=== PATIENT | male | born 1990 | race Caucasian/White ===

== ENCOUNTER 2023-06-20 04:05 | Day surgery (SDC) | payer OTHER ==
[2023-06-19 14:47] VITALS: BMI 29.2
[2023-06-20] MEDS ORDERED: LIDOCAINE HCL/PF 2% SDV 5ML VIAL ONE (10:16)
[2023-06-20] MEDS ORDERED: ONDANSETRON 4 MG/2 ML VIAL ONE (10:16)
[2023-06-20] MEDS ORDERED: SODIUM CHLORIDE 0.9% P/F 10 ML VIAL IJ ONE (10:16)
[2023-06-20] MEDS ORDERED: DEXAMETHASONE SOD PHOSPHATE 4 MG/1 ML VIAL ONE (10:16)
[2023-06-20] MEDS ORDERED: ROCURONIUM BROMIDE 50 MG/5 ML SYRINGE ONE (10:19)
[2023-06-20] MEDS ORDERED: HYDROmorphone HCl 2 MG/ML VIAL ONE (10:20)
[2023-06-20] MEDS ORDERED: PROPOFOL 20 ML ONE (10:21)
[2023-06-20] MEDS ORDERED: MIDAZOLAM HCL 2 MG/2 ML SINGLE DOSE VIAL ONE (10:23)
[2023-06-20] MEDS ORDERED: COCAINE HCL 4% TOPICAL SOLUTION 4 ML BOTTLE TP ONE ×2 (12:39→13:28)
[2023-06-20] MEDS ORDERED: oxyCODONE HCL 5 MG TABLET PO PRN ×2 (12:56→15:23)
[2023-06-20] MEDS ORDERED: LACTATED RINGERS SOLUTION 1,000 ML IV SCH ×2 (13:00→15:30)
[2023-06-20] MEDS ORDERED: ceFAZolin SODIUM 1 GM VIAL IVPB ONE (13:15)
[2023-06-20] MEDS ORDERED: ACETAMINOPHEN INJECTION 100 ML IVPB ONE (13:26)
[2023-06-20] MEDS ORDERED: LIDOCAINE 1%/EPI 1:100000 (20 ML MULTI DOSE VIAL) IJ ONE (13:28)
[2023-06-20] MEDS ORDERED: SUGAMMADEX SODIUM 200 MG/2 ML VIAL ONE (14:50)
[2023-06-20 17:12] VITALS: RESP 16
[2023-06-20 18:32] VITALS: BP 125/70; PULSE 88; TEMP 96.5
== END 2023-06-20 18:25 | disposition home or self-care (01) ==
LOC: JASU-SURG 04:05
PROVIDERS: ATTEND Otolaryngology
PROC: 09TU8ZZ Resection of Right Ethmoid Sinus, Via Natural or Artificial Opening Endoscopic (ICD-10-PCS; 2023-06-20)
PROC: 8E09XBZ Computer Assisted Procedure of Head and Neck Region (ICD-10-PCS; 2023-06-20)
PROC: 09BK8ZX Excision of Nasal Mucosa and Soft Tissue, Via Natural or Artificial Opening Endoscopic, Diagnostic (ICD-10-PCS; 2023-06-20)
PROC: 09TV8ZZ Resection of Left Ethmoid Sinus, Via Natural or Artificial Opening Endoscopic (ICD-10-PCS; principal; 2023-06-20 11:00)
DX: J32.4 Chronic pansinusitis (principal); J33.8 Other polyp of sinus; R43.0 Anosmia; J34.2 Deviated nasal septum
CPT/HCPCS: 88304-TC; 94760